=== PATIENT | male | born 1960 | race Caucasian/White ===

== ENCOUNTER → 2019-06-19 | Outpatient (CLI) | payer BC ==
[~2019-06-19] MED LIST: CEFDINIR300 MG PO; IMURAN 50MG TAB50 M1 PO; LIALDA1.2 GM PO; PREDNISONE50 MG PO
== END ==
LOC: M.MRI 06-05 17:30
DX: K51.00 Ulcerative (chronic) pancolitis without complications (principal); S83.412A Sprain of medial collateral ligament of left knee, initial encounter; M23.012 Cystic meniscus, anterior horn of medial meniscus, left knee; X58.XXXA Exposure to other specified factors, initial encounter; Y93.89 Activity, other specified; Y92.89 Other specified places as the place of occurrence of the external cause; Y99.8 Other external cause status